=== PATIENT | male | born 2000 | race Caucasian/White ===

== ENCOUNTER 2021-03-23 08:12 | Emergency (ER) | payer OTHER ==
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
[2021-03-23 09:46] VITALS: TEMP 98; O2SAT 100
[2021-03-23 09:48] VITALS: BP 127/79
== END 2021-03-23 09:41 | disposition home or self-care (01) ==
LOC: ER 08:12
DX: S16.1XXA Strain of muscle, fascia and tendon at neck level, initial encounter (principal); V44.5XXA Car driver injured in collision with heavy transport vehicle or bus in traffic accident, initial encounter
CPT/HCPCS: 70450; 72125; 99283